=== PATIENT | male | born 1955 | race Caucasian/White ===

== ENCOUNTER 2022-10-15 13:09 | Observation (INO) | payer MEDICARE, OTHER, SELFPAY ==
[2022-10-15] VITALS (11 sets, daily range): BP systolic 164–219; BP diastolic 84–102; PULSE 61–76; RESP 12–18; TEMP 35.5–37; O2SAT 88–99; BMI 31.8; BMI 30.4
--- NOTE | 2022-10-15 13:46 | CT_ITS ---
We are attempting to reach an attending provider to discuss findings. An addendum with communication details will be sent when the communication is complete. HISTORY: Neuro deficit, acute, stroke suspected. TECHNIQUE: Multiple axial images were obtained of the head without intravenous contrast. A radiation dose optimization technique was used for this scan. 251 images. COMPARISON: None. FINDINGS: BRAIN PARENCHYMA: Multiple foci and zones of low attenuation in the bilateral cerebral white matter compatible with chronic small vessel ischemic gliosis. Small chronic appearing left basal ganglia infarct. No acute intra-axial hemorrhage identified. CSF SPACES: Generalized volume loss. No midline shift or other significant mass effect. No acute extra-axial hemorrhage seen. 1.3 cm enlarged pituitary with remodeling of the sella. OTHER: Intact calvarium. Mild sphenoid and maxillary sinus mucosal thickening. Unremarkable orbits. 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 Recommend MRI pituitary mass protocol. No acute intracranial hemorrhage identified. Small chronic appearing left basal ganglia lacunar infarct. Chronic involutional and white matter changes. Electronically Signed: Cari Chilel MD at 14:04 EDT ,
--- NOTE | 2022-10-15 13:46 | EDS_ITS ---
HPI <WILSON Isbell - Last Filed: 10/15/22 19:27> History of Present Illness Chief Complaint: Nausea/Vomiting Narrative Narrative: Patient presenting today due to sudden onset dizziness that started around 12- 12:30 this afternoon while he was at a baseball game with his . He reports that he went to put his phone to his side without turning his head or changing position and told his , I am dizzy. He became diaphoretic, nauseous, and has had several episodes of vomiting. He denies any past medical history of any chronic health conditions. He denies a history of stroke. He thinks he might of had vertigo in the past but also had a stomach bug at that time. He denies any chest pain, shortness of breath, fever, chills, abdominal pain. PFSH <WILSON Isbell - Last Filed: 10/15/22 19:27> PFSH Medical History Abdominal undescended testes Concussion Medical History no medical history Home Medications NK 10/15/22 [History Last Taken Unknown] Allergy/AdvReac Type Severity Reaction Status Date / Time No Known Allergies Allergy Verified 10/15/22 13:11 Family History (Updated 10/15/22 @ 16:[address] Shaila Marx DO) Other CAD (coronary artery disease) CVA (cerebral vascular accident) Diabetes Heart disease Hypertension Kidney disease Surgical History H/O hernia repair Surgical History no surgical history Social History (Updated 10/15/22 @ 16:[address] Shaila Marx DO) household members: spouse housing: house current occupational status: employed current occupation: Chiropractor Smoking Status: Never smoker alcohol intake: never substance use type: does not use ROS <WILSON Isbell - Last Filed: 10/15/22 19:27> ROS ED Constitutional Constitutional ED: Denies chills or fever(s) Cardiovascular Cardiovascular: Denies chest pain or palpitations Respiratory/Chest Respiratory/Chest: Denies cough or dyspnea Gastrointestinal Gastrointestinal: Denies abdominal pain, nausea or vomiting Musculoskeletal Musculoskeletal: Denies arthralgias or myalgias Integumentary Denies rash Neurologic Neurologic: Reports dizziness; Denies confusion, paresthesias or weakness EXAM <WILSON Isbell - Last Filed: 10/15/22 19:27> Physical Exam Const Vital Signs: 10/15/22 13:11 10/15/22 13:16 10/15/22 13:56 Temperature 96 F L Temperature Source Temporal Pulse Rate 63 Respiratory Rate 17 Blood Pressure 214/102 H Blood Pressure Mean 139 Pulse Ox 92 Oxygen Delivery Method Room Air Room Air 10/15/22 14:00 10/15/22 14:30 10/15/22 14:30 Temperature Temperature Source Pulse Rate 61 Respiratory Rate 17 Blood Pressure 219/97 H 210/94 H 210/94 H Blood Pressure Mean 137 128 128 Pulse Ox 88 Oxygen Delivery Method Room Air Room Air 10/15/22 15:00 Temperature Temperature Source Pulse Rate Respiratory Rate Blood Pressure 195/88 H Blood Pressure Mean 119 Pulse Ox 96 Oxygen Delivery Method Room Air Positive well nourished and well developed General Appearance ED: well developed HEENT Reports normocephalic and head/scalp atraumatic Mouth ED: Yes moist mucous membranes normal Neck full ROM and supple Chest Wall inspection of chest normal Resp normal respiratory effort and clear to auscultation bilaterally Cardio regular rate and regular rhythm GI soft to palpation, non-tender, non-distended and no masses Back/Spine normal ROM and normal to inspection Extremity normal to inspection and full ROM Neuro oriented x3, CN's II-XII intact bilaterally, moves all extremities, no focal motor deficits and no sensory deficits noted Sensorium / Orientation: awake and alert Speech: speech normal Motor Exam: strength 5/5 throughout Psych mental status grossly normal and thought process normal Skin no rashes or lesions noted and no wounds <Dr. Ramila Bajwa MD - Last Filed: 10/15/22 15:48> Physical Exam Const Vital Signs: 10/15/22 13:11 10/15/22 13:16 10/15/22 13:56 Temperature 96 F L Temperature Source Temporal Pulse Rate 63 Respiratory Rate 17 Blood Pressure 214/102 H Blood Pressure Mean 139 Pulse Ox 92 Oxygen Delivery Method Room Air Room Air 10/15/22 14:00 10/15/22 14:30 10/15/22 14:30 Temperature Temperature Source Pulse Rate 61 Respiratory Rate 17 Blood Pressure 219/97 H 210/94 H 210/94 H Blood Pressure Mean 137 128 128 Pulse Ox 88 Oxygen Delivery Method Room Air Room Air 10/15/22 15:00 Temperature Temperature Source Pulse Rate Respiratory Rate Blood Pressure 195/88 H Blood Pressure Mean 119 Pulse Ox 96 Oxygen Delivery Method Room Air [facility] <WILSON Isbell - Last Filed: 10/15/22 19:27> [facility] Narrative Medical decision making narrative: Patient presenting today for sudden onset dizziness that started around 12 or 12:30 PM this afternoon. he was at a baseball game when this started and went to set his phone down at his side without turning his head or changing position and suddenly felt dizzy. He describes it as the room is spinning. On initial examination, he is unable to open his eyes because he reports he is too dizzy and he is actively vomiting. He has a blood pressure of 214/102, given patient's symptoms stroke team was initiated and a stroke work-up will be obtained. NIH is 0. Patient will be given labetalol for his blood pressure and Zofran for nausea. Initial head CT showed a pituitary enlargement without any intracranial bleeding, head and neck CTAs performed and did not reveal any LVO. Patient required another dose of labetalol for elevated blood pressure. Labs and, CBC, BMP shows elevated BUN and creatinine with a GFR of 54, glucose 146. Chest x-ray negative for any acute findings, EKG sinus bradycardia, troponin WNL. On reexamination patient reports feeling slightly better, he is not as dizzy or nauseous. Attending did speak with teleneurologist who had lower concern for stroke at this time. However, he will be admitted to the hospital for further evaluation in stable condition and is comfortable with plan. Lab Data Attestation: I reviewed the patient's lab results. Labs: Laboratory Results - last 24 hr 10/15/22 10/15/22 10/15/22 13:48 13:56 13:56 WBC 9.0 RBC 4.96 Hgb 14.6 Hct 45.1 MCV 90.9 MCH 29.4 MCHC 32.4 RDW Std Deviation 45.0 H RDW Coeff of [place] 13.4 Plt Count 254 MPV 10.1 Immature Gran % (Auto) 0.600 Neut % (Auto) 69.2 Lymph % (Auto) 16.5 L [place] % (Auto) 8.2 Eos % (Auto) 4.8 Baso % (Auto) 0.7 Absolute Neuts (auto) 6.3 Absolute Lymphs (auto) 1.49 Nucleated RBC % 0 PT 12.7 INR 1.0 APTT 28.2 Sodium Potassium Chloride Carbon Dioxide Anion Gap BUN Creatinine Estim Creat Clear Calc Est GFR (MDRD) Af Amer Est GFR (MDRD) Non-Af BUN/Creatinine Ratio Glucose Hemoglobin A1c Calcium Troponin I High Sens TSH Cortisol POC Glucose 143 H 10/15/22 10/15/22 10/15/22 13:56 13:56 13:56 WBC RBC Hgb Hct MCV MCH MCHC RDW Std Deviation RDW Coeff of [place]was[place] Plt Count MPV Immature Gran % (Auto) Neut % (Auto) Lymph % (Auto) [place] % (Auto) Eos % (Auto) Baso % (Auto) Absolute Neuts (auto) Absolute Lymphs (auto) Nucleated RBC % PT INR APTT Sodium 140 Potassium 3.8 Chloride 106 Carbon Dioxide 29.0 Anion Gap 5 BUN 24 H Creatinine 1.38 H Estim Creat Clear Calc 48.88 Est GFR (MDRD) Af Amer 66 Est GFR (MDRD) Non-Af 54 L BUN/Creatinine Ratio 17.4 Glucose 146 H Hemoglobin A1c 5.6 Calcium 9.2 Troponin I High Sens 12 TSH 0.88 Cortisol POC Glucose 10/15/22 13:56 WBC RBC Hgb Hct MCV MCH MCHC RDW Std Deviation RDW Coeff of [place] Plt Count MPV Immature Gran % (Auto) Neut % (Auto) Lymph % (Auto) [place] % (Auto) Eos % (Auto) Baso % (Auto) Absolute Neuts (auto) Absolute Lymphs (auto) Nucleated RBC % PT INR APTT Sodium Potassium Chloride Carbon Dioxide Anion Gap BUN Creatinine Estim Creat Clear Calc Est GFR (MDRD) Af Amer Est GFR (MDRD) Non-Af BUN/Creatinine Ratio Glucose Hemoglobin A1c Calcium Troponin I High Sens TSH Cortisol 37.20 H POC Glucose Radiography Diagnostic Testing: Clinical Impression(s) from Imaging Studies Brain CT 10/15/22 13:46 IMPRESSION: Enlarged appearance of the pituitary gland with osseous remodeling, suspicious for pituitary macroadenoma or other mass. Recommend MRI pituitary mass protocol. No acute intracranial hemorrhage identified. Small chronic appearing left basal ganglia lacunar infarct. Chronic involutional and white matter changes. Electronically Signed: Cari Chilel MD at 14:04 EDT , ADDENDUM: 10/15/22 1411 IMPRESSION: Enlarged appearance of the pituitary gland with osseous remodeling, suspicious for pituitary macroadenoma or other mass. Recommend MRI pituitary mass protocol. No acute intracranial hemorrhage identified. Small chronic appearing left basal ganglia lacunar infarct. Chronic involutional and white matter changes. N.B. : The above Results were Read Back by Cari Chilel MD to Ramila Bajwa MD, and understanding confirmed on 10/15/2022 14:05:05 (ET). Electronically Signed: Cari Chilel MD at 14:04 EDT , Head/Neck CTA 10/15/22 14:24 IMPRESSION: Moderate stenoses in the proximal bilateral vertebral and internal carotid arteries in the neck. No evidence for large vessel occlusion the [place] region. Small pituitary mass; recommend MRI. Electronically Signed: Cari Chilel MD at 15:29 EDT , Chest X-Ray 10/15/22 14:25 IMPRESSION: Mild bibasilar atelectasis or scarring. Electronically Signed: Cari Chilel MD at 14:57 EDT , EKG Initial EKG: Comments: 59 bpm, sinus bradycardia, possible left atrial enlargement, left axis deviation, left ventricular hypertrophy was QRS widening, no ST elevation, reviewed and interpreted by attending ED physician. <Dr. Ramila Bajwa MD - Last Filed: 10/15/22 15:48> MDM Lab Data Labs: Laboratory Results - last 24 hr 10/15/22 10/15/22 10/15/22 13:48 13:56 13:56 WBC 9.0 RBC 4.96 Hgb 14.6 Hct 45.1 MCV 90.9 MCH 29.4 MCHC 32.4 RDW Std Deviation 45.0 H RDW Coeff of Kwasi 13.4 Plt Count 254 MPV 10.1 Immature Gran % (Auto) 0.600 Neut % (Auto) 69.2 Lymph % (Auto) 16.5 L [place] % (Auto) 8.2 Eos % (Auto) 4.8 Baso % (Auto) 0.7 Absolute Neuts (auto) 6.3 Absolute Lymphs (auto) 1.49 Nucleated RBC % 0 PT 12.7 INR 1.0 APTT 28.2 Sodium Potassium Chloride Carbon Dioxide Anion Gap BUN Creatinine Estim Creat Clear Calc Est GFR (MDRD) Af Amer Est GFR (MDRD) Non-Af BUN/Creatinine Ratio Glucose Hemoglobin A1c Calcium Troponin I High Sens TSH Cortisol POC Glucose 143 H 10/15/22 10/15/22 10/15/22 13:56 13:56 13:56 WBC RBC Hgb Hct MCV MCH MCHC RDW Std Deviation RDW Coeff of Kwasi Plt Count MPV Immature Gran % (Auto) Neut % (Auto) Lymph % (Auto) [place] % (Auto) Eos % (Auto) Baso % (Auto) Absolute Neuts (auto) Absolute Lymphs (auto) Nucleated RBC % PT INR APTT Sodium 140 Potassium 3.8 Chloride 106 Carbon Dioxide 29.0 Anion Gap 5 BUN 24 H Creatinine 1.38 H Estim Creat Clear Calc 48.88 Est GFR (MDRD) Af Amer 66 Est GFR (MDRD) Non-Af 54 L BUN/Creatinine Ratio 17.4 Glucose 146 H Hemoglobin A1c 5.6 Calcium 9.2 Troponin I High Sens 12 TSH 0.88 Cortisol POC Glucose 10/15/22 13:56 WBC RBC Hgb Hct MCV MCH MCHC RDW Std Deviation RDW Coeff of Kwasi Plt Count MPV Immature Gran % (Auto) Neut % (Auto) Lymph % (Auto) [place] % (Auto) Eos % (Auto) Baso % (Auto) Absolute Neuts (auto) Absolute Lymphs (auto) Nucleated RBC % PT INR APTT Sodium Potassium Chloride Carbon Dioxide Anion Gap BUN Creatinine Estim Creat Clear Calc Est GFR (MDRD) Af Amer Est GFR (MDRD) Non-Af BUN/Creatinine Ratio Glucose Hemoglobin A1c Calcium Troponin I High Sens TSH Cortisol 37.20 H POC Glucose Radiography Diagnostic Testing: Clinical Impression(s) from Imaging Studies Brain CT 10/15/22 13:46 IMPRESSION: Enlarged appearance of the pituitary gland with osseous remodeling, suspicious for pituitary macroadenoma or other mass. Recommend MRI pituitary mass protocol. No acute intracranial hemorrhage identified. Small chronic appearing left basal ganglia lacunar infarct. Chronic involutional and white matter changes. Electronically Signed: Cari Chilel MD at 14:04 EDT , ADDENDUM: 10/15/22 1411 IMPRESSION: Enlarged appearance of the pituitary gland with osseous remodeling, suspicious for pituitary macroadenoma or other mass. Recommend MRI pituitary mass protocol. No acute intracranial hemorrhage identified. Small chronic appearing left basal ganglia lacunar infarct. Chronic involutional and white matter changes. N.B. : The above Results were Read Back by Cari Chilel MD to Ramila Bajwa MD, and understanding confirmed on 10/15/2022 14:05:05 (ET). Electronically Signed: Cari Chilel MD at 14:04 EDT , Head/Neck CTA 10/15/22 14:24 IMPRESSION: Moderate stenoses in the proximal bilateral vertebral and internal carotid arteries in the neck. No evidence for large vessel occlusion the [place] region. Small pituitary mass; recommend MRI. Electronically Signed: Cari Chilel MD at 15:29 EDT , Chest X-Ray 10/15/22 14:25 IMPRESSION: Mild bibasilar atelectasis or scarring. Electronically Signed: Cari Chilel MD at 14:57 EDT , Treatment and Re-Evaluation :: Patient seen and evaluated with KENDALL. I personally interviewed and examined the patient. I was involved in all aspects of patient's orders, interpretation of results, and treatment. Patient was seen and evaluated with physicians behavioral assistant. Just after her initial evaluation was asked to see him rather emergently. Patient report he was at a baseball game this morning and felt his normal self. states he laid his phone down on the bench next to him and stated that he was very dizzy. He had no head injury. He did not bend over or turn his head suddenly before onset of symptoms. He has been diaphoretic with nausea and vomiting since that time along with vertiginous symptoms. Patient reportedly does not have a history of hypertension. She states that last year they were in [facility] and he had high blood pressure for a few days. He was given a very short duration of antihypertensives but is not on any blood pressure medications at baseline. He has had mild vertigo in the remote past. This occurred when he had a GI illness. Patient sitting upright in bed with his eyes closed. He is pale and slightly diaphoretic. Head and neck examination feels no external sign of trauma. Heart is regular rate and rhythm. Lung sounds are clear. Abdomen is soft and nontender. Neuro exam reveals normal strength and sensation in his extremities. Given his significant vertigo and nausea I was not initially able to do any visual field testing. Given the patient's degree of symptoms, significant hypertension, and sudden onset of symptoms I did elect to call a stroke alert as there was concern for posterior circulation stroke. Patient was taken for noncontrast head CT. This reveals evidence of a pituitary enlargement that would require further work-up. No evidence of hemorrhage. Patient was seen and evaluated by stroke neurologist from [facility]. She feels that his symptoms are likely more related to peripheral vertigo and hypertension. CBC is unremarkable. Chemistry studies reveal a BUN of 24 and a creatinine of 1.38. There are no prior values to compare to. Troponin is normal at 12. EKG is sinus with no acute ischemia. Portable chest x-ray per my interpretation reveals chronic changes. Patient was given Zofran as well as labetalol. Patient was sent for CTA of the head and neck. He did require a second dose of labetalol for persistent hypertension. CTA of the head and neck reveals no evidence of LVO. There is moderate vascular disease noted. Patient symptoms are improving at this time. Nursing staff states he is able to get up to bedside commode but is still very unsteady on his feet. Patient be discussed with hospitalist for admission and further management of his hypertension. We will discuss bolus IV medication versus starting him on an antihypertensive drip. Discharge Plan Dx/Rx/DC Orders Clinical Impression: Vertigo, Hypertensive emergency Disposition Disposition: Acute Care Hospital [facility] Discharge Date/Time: 10/15/22 16:52
--- NOTE | 2022-10-15 13:48 | NURSING ---
[id number] STROKE ALERT CALLED
--- NOTE | 2022-10-15 13:50 | NURSING ---
NO OLD EKGS
[2022-10-15] MEDS: Ondansetron 4 MG/2 ML Vial IV (14:00)
[2022-10-15] MEDS: Labetalol (Prefilled) 20 MG/4 ML IV ×3 (14:01→18:18)
[2022-10-15 14:03] LABS: Absolute Lymphocyte Count 1.49 X10^3/uL (0.83-4.51); Absolute Neutrophil Count 6.3 X10^3/uL (2.0-7.7); Basophil# 0.06 X10^3/uL; Basophil% 0.7 % (0-1); Eosinophil# 0.43 X10^3/uL; Eosinophils% 4.8 % (0-5); Hematocrit 45.1 % (40-54); Hemoglobin 14.6 g/dL (13.0-16.5); Lymphocyte # 1.49 X10^3/ul (0.83-4.51); Lymphocyte % 16.5 % (19-41); Mean Corp Hgb Conc 32.4 g/dL (32-36); Mean Corpuscular Hgb 29.4 pg (27.0-32.0); Mean Corpuscular Volume 90.9 fL (80-94); Mean Platelet Vol. 10.1 fl (6.2-12.0); Monocyte# 0.74 X10^3/uL; Monocyte% 8.2 % (0-10); NRBC Flagged by Analyzer 0 % (0-5); Neutrophil # 6.25 X10^3/uL (2.7-7.7); Neutrophil % 69.2 % (47-70); Platelet Count 254 K/mm3 (150-450); RBC Distribution Width CV 13.4 % (11.6-14.6); Red Blood Count 4.96 M/mm3 (4.6-6.2)
[2022-10-15 14:12] LABS: Prothrombin Time (Protime)PT. 12.7 SECONDS (11.7-14.9)
[2022-10-15 14:13] LABS: Partial Thromboplast Time 28.2 Seconds (24.1-36.2)
[2022-10-15 14:18] LABS: Anion Gap 5 (5-15); BUN 24 mg/dL (7-18); BUN/Creat Ratio 17.4 RATIO (10-20); Calcium,Total 9.2 mg/dL (8.5-10.1); Chloride 106 mmol/L (98-107); Creatinine, Serum 1.38 mg/dL (0.70-1.30); EST Glomerular Filtration Rate 54 mL/min (>60); Est Glom Filt Rate - Afr Amer 66 mL/min (>60); Estimated Creatinine Clearance 48.88 ml/min; Glucose 146 mg/dL (74-106); Potassium 3.8 mmol/L (3.5-5.1); Sodium Level 140 mmol/L (136-145); Troponin-I HS 12 pg/mL (3.0-78.0)
--- NOTE | 2022-10-15 14:24 | CT_ITS ---
HISTORY: vertigo. TECHNIQUE: [place]/head and carotid CT angiogram protocol was performed after the intravenous administration of 100 mL Isovue 370. NASCET criteria using the distal ICAs for comparison were used for evaluation of stenoses. 3D reconstructions were reviewed. A radiation dose optimization technique was used for this scan. 2283 images. COMPARISON: CT head same day FINDINGS: AORTIC ARCH AND BRANCHES: Normal anatomy, patent. RIGHT CCA: Calcified and noncalcified plaque at the bifurcation with 30% stenosis. No occlusion, significant stenosis or dissection. RIGHT ICA: Calcified and noncalcified plaque extending into the origin with 50% stenosis. No occlusion, significant stenosis or dissection. LEFT CCA: Mild calcified plaque at the bifurcation with less than 30% stenosis extending into the origins of the internal and external carotid arteries. No occlusion, significant stenosis or dissection. LEFT ICA: Noncalcified plaque proximally with 50% stenosis. Noncalcified plaque distally with 30% stenosis. No occlusion. VERTEBRAL ARTERIES: Calcified plaque at the origin of the left vertebral artery with approximately 50% stenosis. Tortuous proximal right vertebral artery with approximately 50% stenosis. Otherwise patent. ICAs: Mild calcified plaque at both carotid siphons. No significant stenosis or occlusion. ACAs: No significant stenosis at the visualized segments. MCAs: No significant stenosis at the visualized segments. vegetable thinner: No significant stenosis at the visualized segments. BASILAR ARTERY: No significant stenosis. VERTEBRAL ARTERIES: No significant stenosis at the intradural/visualized segments. No evidence of intracranial aneurysm or vascular malformation. OTHER: Sphenoid sinusitis. Maxillary sinus mucous retention cysts. Pituitary mass. CT/CTA Head AND Neck W/ Contrast IMPRESSION: Moderate stenoses in the proximal bilateral vertebral and internal carotid arteries in the neck. No evidence for large vessel occlusion the [place] region. Small pituitary mass; recommend MRI. Electronically Signed: Cari Chilel MD at 15:29 EDT ,
--- NOTE | 2022-10-15 14:25 | RAD_ITS ---
HISTORY: Neuro deficit, acute, stroke suspected. TECHNIQUE: XR Chest 1 View. COMPARISON: None. FINDINGS: CARDIOMEDIASTINAL BORDERS: Cardiac silhouette upper limits of normal in size. Calcification of the aortic knob. LUNGS: Mild linear bibasilar opacities. PLEURA: No pleural effusion or pneumothorax seen. OSSEOUS STRUCTURES: Degenerative change. RAD/Chest 1 View IMPRESSION: Mild bibasilar atelectasis or scarring. Electronically Signed: Cari Chilel MD at 14:57 EDT ,
[2022-10-15 14:26] LABS: Bedside Glucose 143 mg/dL (74-106)
[2022-10-15] MEDS: Aspirin 325 MG Tablet PO (14:29)
--- NOTE | 2022-10-15 16:12 | NURSING ---
DR CHEUNG FOR DR BELLO
--- NOTE | 2022-10-15 16:21 | ECHOD_ITS ---
Reason For Study: TIA/CVA Procedure This was a 2D Doppler, Color Flow transthoracic echocardiogram. Exam performed portable in patient room. Left Ventricle Normal LV size. Moderate concentric left ventricular hypertrophy. The left ventricular ejection fraction is 60 %. Diastolic function is indeterminate. Right Ventricle Normal right ventricle. Atria The left atrium is mildly enlarged. Normal right atrium. Bubble contrast study is negative for PFO/ASD. Mitral Valve The mitral valve is structurally normal. No prolapse or stenosis seen. Tricuspid Valve Normal tricuspid valve. Aortic Valve Trisinus/trileaflet aortic valve. Mild aortic stenosis. Mild-Moderate (1-2+) aortic valve insufficiency. Pulmonic Valve The pulmonic valve is not well visualized. Great Vessels Mildly dilated aortic root. Pericardium/Pleural No pericardial effusion. Medication Performed a rapid injection of agitated mix of 9 cc saline and 1cc air to assess for atrial septal defect. MMode/2D Measurements & Calculations LVIDd: 5.0 cm IVSd: 1.4 cm Ao root diam: 3.8 cm LVIDs: 3.0 cm LVPWd: 1.4 cm RVDd: 3.7 cm FS: 39.1 % LAV(MOD-bp): 76.1 ml LVAd ap4: 40.8 cm2 LVAd ap2: 35.4 cm2 LAV(MOD-bp) Indexed: 37.2 ml/m2 LVLd ap4: 9.4 cm LVLd ap2: 9.0 cm LAV(MOD-sp2): 86.1 ml EDV(MOD-sp4): 152.6 ml EDV(MOD-sp2): 116.7 ml LAV(MOD-sp4): 67.2 ml EDV(sp4-el): 150.4 ml EDV(sp2-el): 118.4 ml LVAs ap4: 21.1 cm2 LVAs ap2: 19.3 cm2 LVLs ap4: 7.4 cm LVLs ap2: 7.4 cm ESV(MOD-sp4): 54.6 ml ESV(MOD-sp2): 45.2 ml ESV(sp4-el): 50.8 ml ESV(sp2-el): 42.4 ml EF(MOD-sp4): 64.3 % EF(MOD-sp2): 61.2 % EF(sp4-el): 66.2 % SV(MOD-sp4): 98.1 ml SV(MOD-sp2): 71.5 ml SV(sp4-el): 99.6 ml LA A4 area: 21.0 cm2 LA dimension(2D): 4.3 cm RA A4 area: 11.7 cm2 Time Measurements MV dec time: 0.28 sec Doppler Measurements & Calculations MV E max brad: 62.3 cm/sec Lat Peak E' Brad: 8.6 cm/sec Med Peak E' Brad: 5.7 cm/sec MV A max brad: 78.6 cm/sec E/E' lat: 7.2 E/E' med: 10.9 MV E/A: 0.79 Ao V2 max: 244.8 cm/sec AI max brad: 380.3 cm/sec LV V1 max: 111.6 cm/sec Ao max P.0 mmHg AI max P.0 mmHg LV V1 max P.0 mmHg Ao V2 mean: 167.4 cm/sec LV V1 mean P.1 mmHg Ao mean P.1 mmHg AI dec slope: 186.1 cm/sec2 LV V1 mean: 82.5 cm/sec Ao V2 VTI: 53.3 cm AI P1/2t: 598.4 msec LV V1 VTI: 25.9 cm AV (velocity ratio): 0.49 ECHO/Echo Complete Interpretation Summary Moderate concentric left ventricular hypertrophy. The left ventricular ejection fraction is 60 %. Diastolic function is indeterminate. The left atrium is mildly enlarged. Mild aortic stenosis. Mild-Moderate (1-2+) aortic valve insufficiency. Mildly dilated aortic root. Bubble contrast study is negative for PFO/ASD. Ordering Physician: Shaila Marx Referring Physician: MARLENE PCP Performed By: Cassie Gonzalez, CAIN, RVT
--- NOTE | 2022-10-15 16:21 | NURSING ---
PCU OBS JONATAN VERTIGO, HYPERTENSIVE URGENCY
--- NOTE | 2022-10-15 16:23 | PCM.HP.STD ---
HPI - General General Date of Admission: 10/15/22 Date of Service: 10/15/22 Chief Complaint: Vertigo HPI Narrative ELLIOTT GARCIA, is a 67 M who presented to the emergency department at [facility] on 10/15/2022 with a chief complaint of vertigo. The patient is here from out of town. He lives in [place] [facility] [place] and is here to see his grandchildren play baseball. He was sitting at one of the baseball games when he acutely developed vertigo. It was not worsened with any movement of his head and was acute in onset. It was associated with nausea and vomiting. Symptoms did improve with closing of his eyes. He denied any other associated tingling numbness or weakness. He had no abnormal speech. At the time of my evaluation he was back to his baseline and experiencing no vertigo. His blood pressure was noted to be remarkably high on presentation with a systolic greater than 200. He does not have any diagnosed hypertension at baseline. He states that he had a couple episodes of elevated blood pressure previously but when he checks his blood pressure at home he runs from the 140s to 150s systolic. He has never been placed on antihypertensives for extended period of time previously. Vital signs on presentation showed temperature of 96, heart rate 63, blood pressure 114/102 with repeat after medication at 181/84, respiratory rate 17 and pulse ox has been anywhere from 88 to 96% on room air. CBC is unremarkable. Coags are normal. Chemistry panel shows normal electrolytes and a mildly elevated BUN and creatinine at 24 and 1.38 respectively with baseline being unknown. His blood sugar was 146. His troponin was 12. Chest x-ray showed mild bibasilar atelectasis or scarring. CT of the brain showed enlarged appearance of the pituitary gland with osseous remodeling suspicious for pituitary macroadenoma, small chronic appearing changes in the left basal ganglia consistent with a lacunar infarct and chronic involutional and white matter changes. CTA of the head and neck showed moderate stenosis at 50% in the bilateral vertebral and bilateral internal carotid arteries with no large vessel occlusion in the [place] and a small pituitary mass. He was given aspirin and treated with as needed labetalol in the emergency department. Stroke neurology was consulted and recommended admission if his vertiginous symptoms were persistent and imaging showed any abnormalities. [facility] Medical History (Updated 10/15/22 @ 16:52 [address] DrNico Marx DO) Abdominal undescended testes Concussion Medical History no medical history Home Medications NK 10/15/22 [History Last Taken Unknown] Allergy/AdvReac Type Severity Reaction Status Date / Time No Known Allergies Allergy Verified 10/15/22 13:11 Family History (Updated 10/15/22 @ 16:[address] Shaila Marx DO) Other CAD (coronary artery disease) CVA (cerebral vascular accident) Diabetes Heart disease Hypertension Kidney disease Surgical History (Updated 10/15/22 @ 16:[address] Shaila Marx DO) H/O hernia repair Surgical History no surgical history Social History (Updated 10/15/22 @ 16:[address] Shaila Marx DO) household members: spouse housing: house current occupational status: employed current occupation: Chiropractor Smoking Status: Never smoker alcohol intake: never substance use type: does not use ROS Constitutional Constitutional: Denies anorexia, change in weight, chills, fatigue, fever(s), malaise, night sweats, weakness or other Eyes Eyes: Denies blurry vision, change in eye color, change in vision, discharge from eye(s), double vision, erythema, eye pain, loss of vision or other ENT HEENT: Denies abnormal hearing, dysphagia, ear pain, epistaxis, headache(s), hearing loss, nasal congestion, nasal discharge, post nasal drip, sinus pressure, sore throat or other Cardiovascular Cardiovascular: Denies chest pain, claudication, dyspnea on exertion, edema, lightheadedness, orthopnea, palpitations, paroxysmal nocturnal dyspnea, rapid heart rate, syncope or other Respiratory/Chest Respiratory/Chest: Denies cough, dyspnea, excessive phlegm production, hemoptysis, productive cough, shortness of breath at rest, shortness of breath with exertion, wheezing or other Gastrointestinal Gastrointestinal: Reports nausea and vomiting; Denies abdominal pain, coffee ground emesis, constipation, diarrhea, dyspepsia, hematemesis, hematochezia, loose stools, melena or other Genitourinary Genitourinary: Denies burning urination, difficulty urinating, dysuria, hematuria, nocturia, urinary frequency, urinary hesitancy, urinary incontinence, urinary urgency or other Musculoskeletal Musculoskeletal: Reports back pain; Denies arthralgias, joint pain, joint stiffness, joint swelling, myalgias, neck pain or other Neurologic Neurologic: Reports dizziness; Denies abnormal gait, abnormal speech, confusion, disequilibrium, focal weakness, headache(s), numbness, paresthesias, seizure-like activity, seizures, syncope, tingling, tremor(s) or other Psychiatric Psychiatric: Denies anxiety, depression, homicidal ideation, suicidal ideation or other Endocrine Endocrinology: Denies change in body appearance, cold intolerance, excessive sweating, heat intolerance, polydipsia, polyuria or other Hematologic/Lymphatic Hematologic/Lymphatic: Denies anemia, easy bleeding, easy bruising, lymphadenopathy or other Allergic/Immunologic Allergic/Immunologic: Denies rhinitis, hives, eczemia, asthma or other Vital Signs Vital Signs Vital Signs: 10/15/22 13:11 10/15/22 13:16 10/15/22 13:56 Temperature 96 F L Temperature Source Temporal Pulse Rate 63 Respiratory Rate 17 Blood Pressure 214/102 H Blood Pressure Mean 139 Pulse Ox 92 Oxygen Delivery Method Room Air Room Air 10/15/22 14:00 10/15/22 14:30 10/15/22 14:30 Temperature Temperature Source Pulse Rate 61 Respiratory Rate 17 Blood Pressure 219/97 H 210/94 H 210/94 H Blood Pressure Mean 137 128 128 Pulse Ox 88 Oxygen Delivery Method Room Air Room Air 10/15/22 15:00 Temperature Temperature Source Pulse Rate Respiratory Rate Blood Pressure 195/88 H Blood Pressure Mean 119 Pulse Ox 96 Oxygen Delivery Method Room Air Weight Weight: 95 kg Body Mass Index (BMI) 31.8 Physical Exam Const alert, oriented x3, no apparent distress, healthy appearing and well nourished Constitutional Narrative: Overweight, upper middle-aged, white male, lying in bed, at bedside, patient appears comfortable and nontoxic General Appearance: cooperative HEENT normocephalic, head/scalp atraumatic, hearing grossly normal bilaterally and moist oral mucous membranes HEENT Narrative: Mallampati 1, no thrush Eyes PERRL, EOMs intact bilaterally and conjunctivae normal Eyes Narrative: No scleral icterus Neck no lymphadenopathy, supple, no JVD and no carotid bruits Neck Narrative: Cardiac murmur that radiates to bilateral carotid arteries with no bruit, trachea midline, no thyroid in Resp normal respiratory effort, no retractions, no use of accessory muscles and clear to auscultation bilaterally Auscultation: Negative for rales, rhonchi or wheezes Cardio regular rate, regular rhythm, S1 normal heart sound, S2 normal heart sound, no rub and no clicks; Negative for no murmurs or no gallops Cardio Narrative: S4 gallop, 3 out of 6 systolic murmur loudest at left lower sternal border GI normal to inspection, nondistended, normoactive bowel sounds, soft to palpation and non-tender Extremity no clubbing, cyanosis or edema Extremity Narrative: Pedal pulses are 2+ Skin no rashes or lesions noted, no wounds, skin turgor normal, no jaundice, no petechiae and no mottling Neuro oriented x3, CN's II-XII intact bilaterally, moves all extremities and no focal motor deficits Neuro Narrative: No clonus present Sensorium / Orientation: awake, alert, oriented to person, oriented to place and oriented to time Speech: speech normal Motor Exam: strength 5/5 throughout Psych affect normal Psych Narrative: Very pleasant, appropriately interactive Results Lab / Micro Data Attestation: I reviewed the patient's lab results. Result Diagrams: 10/15/22 13:56 10/15/22 13:56 Labs: Laboratory Results - last 24 hr 10/15/22 13:48: POC Glucose 143 H 10/15/22 13:56: WBC 9.0, RBC 4.96, Hgb 14.6, Hct 45.1, MCV 90.9, MCH 29.4, MCHC 32.4, RDW Std Deviation 45.0 H, RDW Coeff of Kwasi 13.4, Plt Count 254, MPV 10.1, Immature Gran % (Auto) 0.600, Neut % (Auto) 69.2, Lymph % (Auto) 16.5 L, Angelina % (Auto) 8.2, Eos % (Auto) 4.8, Baso % (Auto) 0.7, Absolute Neuts (auto) 6.3, Absolute Lymphs (auto) 1.49, Nucleated RBC % 0 10/15/22 13:56: PT 12.7, INR 1.0, APTT 28.2 10/15/22 13:56: Sodium 140, Potassium 3.8, Chloride 106, Carbon Dioxide 29.0, Anion Gap 5, BUN 24 H, Creatinine 1.38 H, Estim Creat Clear Calc 48.88, Est GFR (MDRD) Af Amer 66, Est GFR (MDRD) Non-Af 54 L, BUN/Creatinine Ratio 17.4, Glucose 146 H, Calcium 9.2, Troponin I High Sens [address] 10/15/22 13:46 IMPRESSION: Enlarged appearance of the pituitary gland with osseous remodeling, suspicious for pituitary macroadenoma or other mass. Recommend MRI pituitary mass protocol. No acute intracranial hemorrhage identified. Small chronic appearing left basal ganglia lacunar infarct. Chronic involutional and white matter changes. Electronically Signed: Cari Chilel MD at 14:04 EDT , ADDENDUM: 10/15/22 1411 IMPRESSION: Enlarged appearance of the pituitary gland with osseous remodeling, suspicious for pituitary macroadenoma or other mass. Recommend MRI pituitary mass protocol. No acute intracranial hemorrhage identified. Small chronic appearing left basal ganglia lacunar infarct. Chronic involutional and white matter changes. N.B. : The above Results were Read Back by Cari Chilel MD to Ramila Bajwa MD, and understanding confirmed on 10/15/2022 14:05:05 (ET). Electronically Signed: Cari Chilel MD at 14:04 EDT , Head/Neck CTA 10/15/22 14:24 IMPRESSION: Moderate stenoses in the proximal bilateral vertebral and internal carotid arteries in the neck. No evidence for large vessel occlusion the [place] region. Small pituitary mass; recommend MRI. Electronically Signed: Cari Chilel MD at 15:29 EDT , Chest X-Ray 10/15/22 14:25 IMPRESSION: Mild bibasilar atelectasis or scarring. Electronically Signed: Cari Chilel MD at 14:57 EDT , Assessment & Plan Assessment/Plan (1) Vertigo: (2) Hypertensive emergency: (3) Elevated serum creatinine: (4) Hyperglycemia: (5) Pituitary mass: PLAN: Plan Vertigo -Acute onset that was not positional -Need to rule out stroke posterior -CT of head showed no bleeding but did show an enlarged appearance of the pituitary gland with osseous remodeling that suspicious for pituitary macroadenoma or other mass an MRI with pituitary mass protocol is recommended, there is a small chronic appearing left basal ganglia lacunar infarct -CTA of the head and neck showed moderate stenosis at the proximal bilateral vertebral and internal carotid arteries but no evidence of large vessel occlusion and this also suggest pituitary mass, stenosis was noted at approximately 50% -Stroke order set -Check MRI of the of the brain to rule out stroke and for pituitary mass protocol-discussed with MRI -Check hemoglobin A1c -Check lipids -PT/OT consultation -Check echocardiogram Pituitary mass -Pituitary mass noted on CT of brain and CTA of head and neck -MRI with pituitary protocol pending -If pituitary mass is present patient may need transferred -We will have neurology evaluate the patient -Check TSH Hypertensive emergency -Blood pressure was markedly elevated and with neurological changes I believe we can justify emergency at this time -Patient is given as needed labetalol in the emergency department -Continue as needed labetalol and as needed hydralazine for systolic pressure greater than 180 -Goal blood pressure for tonight is to keep systolic around 180 -We will address further blood pressure tomorrow and possibly start oral medications depending on overnight values -Check TSH and cortisol levels -EKG does show some left axis deviation and LVH I do suspect he has hypertension at baseline that is undiagnosed Hyperglycemia -Check hemoglobin A1c -No history of diabetes Obesity -BMI 31.8 -Complicates treatment, prognosis, outcomes -Recommended weight loss DVT prophylaxis -Lovenox subcu daily CODE STATUS -Full code Charges/Coding Visit Charges Inpatient E&M: 56292 Init Hosp L3
--- NOTE | 2022-10-15 16:29 | CM.ED ---
Social Work SW introduced self and role to family. Pt in imagine for stroke alert. SW provided emotional support. Shelbi Barriga SALES OPERATIONS MANAGER, [employer]
[2022-10-15 17:36] LABS: Thyroid Stim Hormone (TSH) 0.88 uIU/mL (0.358-3.74)
[2022-10-15 18:06] LABS: Hemoglobin A1c 5.6 % (3.8-5.6)
[2022-10-15] MEDS: 0.9% Saline Lock 10 ML Syringe IV (18:14)
--- NOTE | 2022-10-15 18:15 | MRI_ITS ---
We are attempting to reach an attending provider to discuss findings. An addendum with communication details will be sent when the communication is complete. STUDY: MRI BRAIN WITH AND WITHOUT CONTRAST REASON FOR EXAM: Male, 67 years old. stroke TECHNIQUE: Standardized multiplanar fat and water weighted pulse sequences were obtained. 18ML IV CLARISCAN was administered for the contrast portion of the examination. COMPARISON: CT of the brain October 15, 2022 FINDINGS: Normal size of the ventricles and extra-axial spaces for the patient''s age. Moderate periventricular white matter ischemic changes. There is a small focus of restricted diffusion in the left parietal lobe consistent with acute ischemic changes . Normal bilateral basal ganglia. Normal thalami. There is no extra-axial fluid accumulation. Normal flow voids within the major intracranial circulation suggesting patency by spin echo criteria. Normal venous enhancement. There is no enhancing intra-axial or extra-axial abnormality. The pituitary is diffusely enlarged and demonstrates slightly heterogeneous enhancement without discrete nodule. Normal, infundibular stalk, optic chiasm and hypothalamus. Normal tectal plate and pineal gland. Normal midbrain, nimesh and medulla. Normal cerebellum. Normal basal cisterns. Normal bilateral temporal bones. Normal bilateral internal auditory canals. No demonstrated orbital abnormality, within the constraints of a routine brain study. There is mucosal thickening in the bilateral maxillary ethmoid and sphenoid sinuses. Normal calvarium and skull base. Normal visualized soft tissue structures. Normal visualized upper cervical spine. MRI/Brain W/WO Contrast IMPRESSION: Moderate periventricular white matter ischemic changes with small focal acute deep white matter infarct in left parietal lobe. Incidental finding of nonspecific enlargement of the pituitary without focal nodule Bilateral maxillary ethmoid and sphenoid sinus disease likely chronic Electronically Signed: Christian Nicole MD at 20:01 EDT ,
[2022-10-15] MEDS: 0.9% Normal Saline 1,000 ML 100 ML IV (18:18)
--- NOTE | 2022-10-15 21:10 | PN_ITS ---
Progress Note Received a call from [facility]. MRI with small focal acute deep white matter infarct in left parietal lobe and incidental finding of nonspecific enlargement of pituitary without focal nodule. Head/neck CTA reviewed. It showed no evidence of large vessel occlusion or [place] region. Small pituitary mass. Teleneurologist called and recommended to add Plavix 600 mg loading dose and then 75 mg daily to continue alongside aspirin 81mg for 3 weeks and then aspirin monotherapy thereafter. And for pituitary mass to be worked out likely outpatient with hormone studies. Patient is already on high intensity statin. Orders placed accordingly.
[2022-10-15] MEDS: Clopidogrel Bisulfate 300 MG Tablet 600 MG PO (22:18)
[2022-10-15] MEDS: Atorvastatin Calcium 80 MG Tablet PO (22:18)
[2022-10-16] VITALS (11 sets, daily range): BP systolic 146–218; BP diastolic 74–103; PULSE 65–79; RESP 15–16; TEMP 36.6–36.9; O2SAT 93–97; BMI 30.4
[2022-10-16] MEDS: Ondansetron 4 MG/2 ML Vial IV ×2 (03:00→10:46)
[2022-10-16] MEDS: Meclizine 12.5 MG Tablet PO ×3 (03:08→15:01)
[2022-10-16 07:16] LABS: Absolute Lymphocyte Count 0.99 X10^3/uL (0.83-4.51); Absolute Neutrophil Count 6.4 X10^3/uL (2.0-7.7); Basophil# 0.05 X10^3/uL; Basophil% 0.6 % (0-1); Eosinophil# 0.08 X10^3/uL; Hematocrit 41.1 % (40-54); Hemoglobin 13.6 g/dL (13.0-16.5); Lymphocyte # 0.99 X10^3/ul (0.83-4.51); Lymphocyte % 11.9 % (19-41); Mean Corp Hgb Conc 33.1 g/dL (32-36); Mean Corpuscular Hgb 29.8 pg (27.0-32.0); Mean Corpuscular Volume 90.1 fL (80-94); Mean Platelet Vol. 10.3 fl (6.2-12.0); Monocyte# 0.77 X10^3/uL; Monocyte% 9.3 % (0-10); NRBC Flagged by Analyzer 0 % (0-5); Neutrophil # 6.39 X10^3/uL (2.7-7.7); Neutrophil % 76.8 % (47-70); Platelet Count 232 K/mm3 (150-450); RBC Distribution Width CV 13.5 % (11.6-14.6); RBC Distribution Width SD 45.1 fl (35.1-43.9); Red Blood Count 4.56 M/mm3 (4.6-6.2); White Blood Count 8.3 K/mm3 (4.4-11.0)
[2022-10-16 07:56] LABS: ALB/GLOB Ratio 0.9 RATIO (0.9-2.4); AST(SGOT) 20 U/L (15-37); Alanine Aminotransfer ALT/SGPT 33 U/L (16-61); Alkaline Phosphatase 68 U/L (45-117); Anion Gap 7 (5-15); BUN 21 mg/dL (7-18); BUN/Creat Ratio 18.1 RATIO (10-20); Calcium,Total 8.7 mg/dL (8.5-10.1); Chloride 109 mmol/L (98-107); Cholesterol 197 mg/dL (200); Creatinine, Serum 1.16 mg/dL (0.70-1.30); EST Glomerular Filtration Rate 66 mL/min (>60); Est Glom Filt Rate - Afr Amer 80 mL/min (>60); Estimated Creatinine Clearance 58.15 ml/min; Globulin 3.2 g/dL (2.2-4.2); Glucose 109 mg/dL (74-106); High Density Lipoprotein 35 mg/dL; Magnesium 2.2 mg/dL (1.6-2.6); Phosphorus 3.2 mg/dL (2.5-4.9); Potassium 3.8 mmol/L (3.5-5.1); Protein, Total 6.2 g/dL (6.4-8.2); Sodium Level 142 mmol/L (136-145); Triglycerides 99 mg/dL; Very Low Density Lipoprotein 20 mg/dL (5-40)
[2022-10-16] MEDS: Labetalol (Prefilled) 20 MG/4 ML IV (07:58)
[2022-10-16] MEDS: 0.9% Saline Lock 10 ML Syringe IV ×2 (07:59→10:47)
--- NOTE | 2022-10-16 08:02 | CPS ---
SMI AND PEP HELD. PT FEELS DIZZY AND NOT UP TO DOING THEM.
[2022-10-16] MEDS: hydrALAZINE 20 MG/ML Vial 5 MG IV (08:33)
[2022-10-16] MEDS: Lisinopril 10 MG Tablet PO (09:04)
[2022-10-16] MEDS: Clopidogrel Bisulfate 75 MG Tablet PO (09:04)
[2022-10-16] MEDS: Aspirin 81 MG TAB.CHEW PO (09:05)
[2022-10-16] MEDS: Enoxaparin 40 MG/0.4 ML Syringe SC (09:05)
--- NOTE | 2022-10-16 11:05 | CASEMGMT ---
MAICOL LAGUNAS in to discuss [employer] form with patient. MAICOL LAGUNAS explained [employer] form to pt per his request, patient voiced understanding. Pt signed form and filed in chart. Pt provided with a copy of signed [facility] form. [place] and [place]. Pt still works. Pt denies any homegoing needs at this time. Therapy was help d/t dizziness. Pt has PCP and will follow up once home. Patient had no further questions or concerns at this time.
--- NOTE | 2022-10-16 11:39 | CPS ---
PEP AND SMI HELD, PT CONTINUES TO BE DIZZY AND NAUSEATED
--- NOTE | 2022-10-16 11:43 | PCM.PN.HOSP ---
Reason for Visit Reason for Visit: Dizziness/Nausea/vomiting Subjective Subjective Patient with recurrent dizziness this morning. He has horizontal nystagmus on exam and its worse with turning his head to the right. Yesterday he was not able to delineate symptoms that were worse with moving however today he is. Has had some intermittent nausea and vomiting associated with his dizziness as well. We did discuss the findings of a left parietal stroke on his MRI however his stroke does not correlate with symptoms of dizziness. I think this is in an incidental finding and possibly his blood pressure went up and he was experiencing dizziness and caused a small vessel ischemic stroke in the deep white matter of the left parietal hemisphere. He does appear to have chronic hypertension with LVH noted on his EKG and lipids are elevated with a total cholesterol 197 however his LDL is 142. We did discuss the initiation of Plavix and aspirin as well as atorvastatin and blood pressure medication to control his blood pressure upon discharge. We will still allow for permissive hypertension today and start controlling his blood pressure more aggressively tomorrow. Goal blood pressure be 180 systolic today. Tomorrow we can start blood pressure medication to work towards his goal of 130/80 ultimately. He will need follow-up with neurology as an outpatient both for stroke and for his pituitary hypertrophy. Son and are at the bedside and voiced understanding and all questions were answered. Objective Data Objective Data Vital Signs: Vital Signs Temp Pulse Resp BP Pulse Ox O2 Del Method 97.9 F 66 16 179/87 H 95 Room Air 10/16/22 08:00 10/16/22 08:33 10/16/22 08:00 10/16/22 09:20 10/16/22 08:02 10/16/22 08:02 Oxygen Delivery Method Room Air Weight: 90.8 kg Body Mass Index (BMI) 30.4 Intake & Output: Intake and Output for Last 24 Hours 10/14/22 10/15/22 10/16/22 23:59 23:59 23:59 Intake Total 450 / 450 1120 / 1120 Output Total 0 / 0 Balance 450 / 450 1120 / 1120 Lab / Micro Data Result Diagrams: 10/16/22 06:39 10/16/22 06:39 Labs: Laboratory Results - last 24 hr 10/15/22 13:48: POC Glucose 143 H 10/15/22 13:56: WBC 9.0, RBC 4.96, Hgb 14.6, Hct 45.1, MCV 90.9, MCH 29.4, MCHC 32.4, RDW Std Deviation 45.0 H, RDW Coeff of Kwasi 13.4, Plt Count 254, MPV 10.1, Immature Gran % (Auto) 0.600, Neut % (Auto) 69.2, Lymph % (Auto) 16.5 L, [place] % (Auto) 8.2, Eos % (Auto) 4.8, Baso % (Auto) 0.7, Absolute Neuts (auto) 6.3, Absolute Lymphs (auto) 1.49, Nucleated RBC % 0 10/15/22 13:56: PT 12.7, INR 1.0, APTT 28.2 10/15/22 13:56: Sodium 140, Potassium 3.8, Chloride 106, Carbon Dioxide 29.0, Anion Gap 5, BUN 24 H, Creatinine 1.38 H, Estim Creat Clear Calc 48.88, Est GFR (MDRD) Af Amer 66, Est GFR (MDRD) Non-Af 54 L, BUN/Creatinine Ratio 17.4, Glucose 146 H, Calcium 9.2, Troponin I High Sens 12 10/15/22 13:56: TSH 0.88 10/15/22 13:56: Hemoglobin A1c 5.6 10/15/22 13:56: Cortisol 37.20 H 10/16/22 06:39: WBC 8.3, RBC 4.56 L, Hgb 13.6, Hct 41.1, MCV 90.1, MCH 29.8, MCHC 33.1, RDW Std Deviation 45.1 H, RDW Coeff of Kwasi 13.5, Plt Count 232, MPV 10.3, Immature Gran % (Auto) 0.400, Neut % (Auto) 76.8 H, Lymph % (Auto) 11.9 L, [place] % (Auto) 9.3, Eos % (Auto) 1.0, Baso % (Auto) 0.6, Absolute Neuts (auto) 6.4, Absolute Lymphs (auto) 0.99, Nucleated RBC % 0 10/16/22 06:39: Sodium 142, Potassium 3.8, Chloride 109 H, Carbon Dioxide 26.0, Anion Gap 7, BUN 21 H, Creatinine 1.16, Estim Creat Clear Calc 58.15, Est GFR (MDRD) Af Amer 80, Est GFR (MDRD) Non-Af 66, BUN/Creatinine Ratio 18.1, Glucose 109 H, Calcium 8.7, Phosphorus 3.2, Magnesium 2.2, Total Bilirubin 1.30 H, AST 20, ALT 33, Alkaline Phosphatase 68, Total Protein 6.2 L, Albumin 3.0 L, Globulin 3.2, Albumin/Globulin Ratio 0.9, Triglycerides 99, Cholesterol 197, LDL Cholesterol 142 H, VLDL Cholesterol 20, HDL Cholesterol 35 L Radiography Diagnostic Testing: Radiology Impression Brain CT 10/15/22 13:46 IMPRESSION: Enlarged appearance of the pituitary gland with osseous remodeling, suspicious for pituitary macroadenoma or other mass. Recommend MRI pituitary mass protocol. No acute intracranial hemorrhage identified. Small chronic appearing left basal ganglia lacunar infarct. Chronic involutional and white matter changes. Electronically Signed: Cari Chilel MD at 14:04 EDT , ADDENDUM: 10/15/22 1411 IMPRESSION: Enlarged appearance of the pituitary gland with osseous remodeling, suspicious for pituitary macroadenoma or other mass. Recommend MRI pituitary mass protocol. No acute intracranial hemorrhage identified. Small chronic appearing left basal ganglia lacunar infarct. Chronic involutional and white matter changes. N.B. : The above Results were Read Back by Cari Chilel MD to Ramila Bajwa MD, and understanding confirmed on 10/15/2022 14:05:05 (ET). Electronically Signed: Cari Chilel MD at 14:04 EDT , Head/Neck CTA 10/15/22 14:24 IMPRESSION: Moderate stenoses in the proximal bilateral vertebral and internal carotid arteries in the neck. No evidence for large vessel occlusion the [place]. Small pituitary mass; recommend MRI. Electronically Signed: Cari Chilel MD at 15:29 EDT , Chest X-Ray 10/15/22 14:25 IMPRESSION: Mild bibasilar atelectasis or scarring. Electronically Signed: Cari Chilel MD at 14:57 EDT , Brain MRI 10/15/22 18:15 IMPRESSION: Moderate periventricular white matter ischemic changes with small focal acute deep white matter infarct in left parietal lobe. Incidental finding of nonspecific enlargement of the pituitary without focal nodule Bilateral maxillary ethmoid and sphenoid sinus disease likely chronic Electronically Signed: Christian Nicole MD at 20:01 EDT , ADDENDUM: 10/15/222052 IMPRESSION: Moderate periventricular white matter ischemic changes with small focal acute deep white matter infarct in left parietal lobe. Incidental finding of nonspecific enlargement of the pituitary without focal nodule Bilateral maxillary ethmoid and sphenoid sinus disease likely chronic N.B. : The above Results were Read Back by Christian Nicole MD to LEEANN RODGERS MD, and understanding confirmed on 10/15/2022 20:46:38 (ET). Electronically Signed: Christian Nicole MD at 20:01 EDT , Physical Exam Const alert, oriented x3, no apparent distress, healthy appearing and well nourished Constitutional Narrative: Overweight, upper middle-aged, white male, sitting up in bed, and son at bedside, appears somewhat miserable at this time however does not appear toxic General Appearance: cooperative HEENT normocephalic, head/scalp atraumatic, hearing grossly normal bilaterally and moist oral mucous membranes Eyes PERRL, EOMs intact bilaterally and conjunctivae normal Eyes Narrative: No scleral icterus, horizontal nice to note Neck no lymphadenopathy and supple Neck Narrative: Trachea midline, no thyroid enlargement Resp normal respiratory effort, no retractions, no use of accessory muscles and clear to auscultation bilaterally Auscultation: Negative for rales, rhonchi or wheezes Cardio regular rate, regular rhythm, S1 normal heart sound, S2 normal heart sound, no rub and no clicks; Negative for no murmurs or no gallops Cardio Narrative: S4 gallop, 3 out of 6 systolic murmur loudest at left lower sternal border GI normal to inspection, nondistended, normoactive bowel sounds, soft to palpation and non-tender Extremity no clubbing, cyanosis or edema Extremity Narrative: Pedal pulses are 2+ Skin no rashes or lesions noted, no wounds, skin turgor normal, no jaundice, no petechiae and no mottling Neuro oriented x3, CN's II-XII intact bilaterally, moves all extremities and no focal motor deficits Neuro Narrative: Patient with horizontal nystagmus bilateral eyes that does appear to be fatigable and worsens with turning his head to his right Sensorium / Orientation: awake, alert, oriented to person, oriented to place and oriented to time Speech: speech normal Psych Psych Narrative: Affect is somewhat flat today however patient is not feeling well at the time, interacts appropriately Assessment & Plan Assessment/Plan (1) Vertigo: (2) Hypertensive emergency: (3) Elevated serum creatinine: (4) Hyperglycemia: (5) Pituitary mass: (6) Acute stroke due to ischemia: (7) Hyperlipidemia: (8) Carotid artery stenosis: (9) Vertebral artery stenosis: PLAN: Plan Left parietal deep white matter stroke -MRI demonstrated moderate periventricular white matter ischemic changes as well as a small focal acute deep white matter infarct in the left parietal lobe and pituitary enlargement without nodularity -Findings on MRI are not consistent with a stroke that would cause vertigo -We will allow for permissive hypertension for the next 24 hours with goal systolic pressure at 180 today and then okay to drop pressure tomorrow to goal of 130/80 -Based on his EKG I suspect he has untreated hypertension at baseline--> met LVH criteria -Echocardiogram remains pending -Continue aspirin 81 mg daily -Plavix loaded last evening and currently on 75 mg daily -Continue atorvastatin 80 mg daily -We will start low-dose lisinopril 10 mg to start to bring his blood pressure down without using as needed's -PT/OT consultation are pending Vertigo -Vertigo is now positional and associate with horizontal nystagmus -Posterior stroke ruled out however deep white matter left parietal stroke noted -Suspect acute vestibular syndrome -Suspect BPPV or labyrinthitis -We will start low-dose IV steroid 20 mg daily -Continue as needed meclizine Pituitary mass -Pituitary enlargement but no mass noted on MRI -Neurology recommended outpatient neurological follow-up with outpatient labs -TSH is normal here -Cortisol slightly elevated however to be expected with acute hospitalization and stroke -We will need further biochemical testing as an outpatient Bilateral carotid artery and vertebral artery stenosis -Moderate on CTA suggesting 50% of all 4 vessels -Continue blood pressure management with more aggressive parameters in the next 24 hours -Continue atorvastatin -Outpatient follow-up Hypertensive emergency -Blood pressure was markedly elevated and with neurological changes I believe we can justify emergency at this time -Start lisinopril 10 mg daily--> anticipate that this will need to be uptitrated -Continue as needed labetalol and as needed hydralazine for systolic pressure greater than 180 -Goal blood pressure today is approximately 180 systolic and will start to drop further tomorrow -EKG does show some left axis deviation and LVH I do suspect he has hypertension at baseline that is undiagnosed -Echocardiogram is pending Elevated serum creatinine -Likely related to nausea and vomiting -Improved today from 1.38-1.16 next-repeat lab in a.m. Hyperglycemia -Patient is not diabetic -Hemoglobin A1c was 5.6 Obesity -BMI 31.8 -Complicates treatment, prognosis, outcomes -Recommended weight loss DVT prophylaxis -Lovenox subcu daily CODE STATUS -Full code Charges/Coding Visit Charges Inpatient E&M: 52364 Subs Hosp L3
--- NOTE | 2022-10-16 13:54 | CPS ---
SMI HELD AT THIS TIME ALONG WITH PEP. PT RESTING AND HAS NOT BEEN FEELING WELL DUE TO HIS VERTIGO SYMPTOMS.
[2022-10-16] MEDS: Atorvastatin Calcium 80 MG Tablet PO (20:15)
[2022-10-17] VITALS (12 sets, daily range): BP systolic 147–203; BP diastolic 71–107; PULSE 60–75; RESP 15–18; TEMP 36.3–37.2; O2SAT 94–98; BMI 30.4
[2022-10-17 06:27] LABS: Anion Gap 4 (5-15); BUN 22 mg/dL (7-18); BUN/Creat Ratio 17.7 RATIO (10-20); Calcium,Total 8.7 mg/dL (8.5-10.1); Chloride 110 mmol/L (98-107); Creatinine, Serum 1.24 mg/dL (0.70-1.30); EST Glomerular Filtration Rate 61 mL/min (>60); Est Glom Filt Rate - Afr Amer 74 mL/min (>60); Glucose 91 mg/dL (74-106); Potassium 3.5 mmol/L (3.5-5.1); Sodium Level 141 mmol/L (136-145)
[2022-10-17] MEDS: Carvedilol 6.25 MG Tablet PO ×2 (08:06→17:38)
[2022-10-17] MEDS: Lisinopril 20 MG Tablet PO ×2 (08:06→10:36)
[2022-10-17] MEDS: Aspirin 81 MG TAB.CHEW PO (08:07)
[2022-10-17] MEDS: Clopidogrel Bisulfate 75 MG Tablet PO (08:07)
[2022-10-17] MEDS: Enoxaparin 40 MG/0.4 ML Syringe SC (10:02)
[2022-10-17] MEDS: 0.9% Saline Lock 10 ML Syringe IV (10:03)
--- NOTE | 2022-10-17 11:24 | CPS ---
PT SLEEPING AT THIS TIME SMI AND PEP HELD
[2022-10-17] MEDS: amLODIPine 10 MG Tablet PO (15:37)
--- NOTE | 2022-10-17 17:20 | RDU_ITS ---
Reason For Study: HTN Right Renal Artery Left Renal Artery Right renal artery ostium Left renal artery ostium 108.8/21.2 101.5/19.4 RSV/EDV. PSV/EDV. Right renal artery proximal Left renal artery proximal PSV/EDV 114.3/21.2 PSV/EDV. 123.4/26.7 . Right renal artery mid 93.6/26.7 Left renal artery mid 110.6/26.7 PSV/EDV. PSV/EDV . Right renal artery distal 102/19.8 Left renal artery distal 108.1/35.3 PSV/EDV. PSV/EDV. Right Renal Parenchyma Left Renal Parenchyma Upper Pole Medula 25.1/7 PSV/EDV. Left upper pole medulla 28.3/7 Right upper pole medulla EDR 0.3 . PSV/EDV . Right upper pole medulla R.I. Left upper pole medulla EDR 0.2 . 0.72 . Left upper pole medulla R.I. 0.75 . Upper Aaron Cortx 19.8/4.1 PSV/EDV. UP Cortex 13.2/4.7 PSV/EDV. Right upper pole cortex EDR 0.2 . Left upper pole cortex EDR 0.4 . Right upper pole cortex R.I. 0.79 . Left upper pole cortex R.I. 0.65 . Right lower Pole medulla 25.8/6.3 Left lower Pole medulla 19.3/7 PSV/EDV . PSV/EDV . Right lower pole medulla EDR 0.2 . Left lower pole medulla EDR 0.4 . Right lower pole medulla R.I. Left lower pole medulla R.I. 0.64 . 0.76 . Lower Pole Cortx 14.1/4.7 PSV/EDV. Lower Pole Cortex 16.9/4.8 PSV/EDV. Left lower pole cortex EDR 0.3 . Right lower pole cortex EDR 0.3 . Left lower pole cortex R.I. 0.67 . Right lower pole cortex R.I. 0.71 . Left Renal Hilar Right Renal Hilar LT Hilar avg 43.6/11.6 PSV/EDV . Right Hilar avg 57.3/15.7 PSV/EDV. Left hilar acceleration time 50 Right hilar acceleration time 40 m/sec. m/sec. Left Renal Dimensions Right Renal Dimensions Left kidney size 10.73 cm . Right kidney size 10.54 cm . Left cortical dimension 1.91 cm . Right cortical dimension 1.82 cm . Aorta Proximal abdominal aorta 1.79 x 1.79 cm . Proximal abdominal aorta peak systolic velocity is 112.5 cm/sec . Distal abdominal aorta 1.62 x 1.59 cm . Distal abdominal aorta peak systolic velocity is 123.5 cm/sec . VL/Renal Artery Duplex Ultrasound Interpretation Summary Less than 60% stenosis bilateral renal arteries. Right renal length maintained at 10.54 cm Left renal length maintained at 10.73 cm Maximal aortic dimensions proximally at 1.79 x 1.79 cm in diameter Slightly elevated proximal abdominal aortic flow velocity of 112.5 cm/s which i nvalidates renal artery to aortic ratios but I do not believe that that affects the current inte rpretation. Ordering Physician: Shaila Marx Performed By: Tootie Cormier RVT
--- NOTE | 2022-10-17 17:42 | PCM.PN.HOSP ---
Reason for Visit Reason for Visit: Dizziness Subjective Subjective Patient is feeling better overall today. Still some unsteady gait and states his vision is just a little bit fuzzy. No nystagmus or dizziness today. Blood pressure was improved this morning however through the day despite up titration of his antihypertensives his blood pressure remained elevated which was prohibitive to discharge. Cortisol was elevated on presentation at 36. Began questioning whether or not he has central induced Erik's disease with his pituitary enlargement. I will check an ACTH tonight as well as a renal duplex to be done in the morning for further work-up with regards to his blood pressure. Continue current blood pressure medications along with as needed's Objective Data Objective Data Vital Signs: Vital Signs Temp Pulse Resp BP Pulse Ox O2 Del Method 97.9 F 69 16 205/104 H 96 Room Air 10/17/22 16:00 10/17/22 17:38 10/17/22 16:00 10/17/22 17:38 10/17/22 16:00 10/17/22 16:00 Oxygen Delivery Method Room Air Weight: 90.8 kg Body Mass Index (BMI) 30.4 Intake & Output: Intake and Output for Last 24 Hours 10/15/22 10/16/22 10/17/22 23:59 23:59 23:59 Intake Total 450 / 450 1820 / 1820 1200 / 1200 Output Total 0 / 0 0 / 0 Balance 450 / 450 1820 / 1820 1200 / 1200 Lab / Micro Data Result Diagrams: 10/16/22 06:39 10/17/22 04:54 Labs: Laboratory Results - last 24 hr 10/17/22 04:54: Sodium 141, Potassium 3.5, Chloride 110 H, Carbon Dioxide 27.0, Anion Gap 4 L, BUN 22 H, Creatinine 1.24, Estim Creat Clear Calc 54.40, Est GFR (MDRD) Af Amer 74, Est GFR (MDRD) Non-Af 61, BUN/Creatinine Ratio 17.7, Glucose 91, Calcium 8.7 Physical Exam Const alert, oriented x3, no apparent distress, healthy appearing and well nourished Constitutional Narrative: Overweight, upper middle-aged, white male, sitting up in a chair at the bedside, at bedside, appears as if he is feeling much better today, comfortable and nontoxic General Appearance: cooperative HEENT normocephalic, head/scalp atraumatic, hearing grossly normal bilaterally and moist oral mucous membranes HEENT Narrative: Mallampati 2 thrush Eyes PERRL and EOMs intact bilaterally Eyes Narrative: No horizontal nystagmus Resp normal respiratory effort, no retractions, no use of accessory muscles and clear to auscultation bilaterally Auscultation: Negative for rales, rhonchi or wheezes Cardio regular rate, regular rhythm, S1 normal heart sound, S2 normal heart sound, no rub, no gallops and no clicks; Negative for no murmurs Cardio Narrative: 3 out of 6 systolic murmur loudest at left lower sternal border GI normal to inspection, nondistended, normoactive bowel sounds, soft to palpation and non-tender Extremity no clubbing, cyanosis or edema Extremity Narrative: Pedal pulses are 2+ Neuro oriented x3, CN's II-XII intact bilaterally, moves all extremities and no focal motor deficits Neuro Narrative: Nystagmus has been resolved Speech: speech normal Motor Exam: strength 5/5 throughout Psych affect normal Psych Narrative: Very pleasant and appropriately interactive Assessment & Plan Assessment/Plan (1) Vertigo: (2) Hypertensive emergency: (3) Elevated serum creatinine: (4) Hyperglycemia: (5) Pituitary mass: (6) Acute stroke due to ischemia: (7) Hyperlipidemia: (8) Carotid artery stenosis: (9) Vertebral artery stenosis: PLAN: Plan Left parietal deep white matter stroke -MRI demonstrated moderate periventricular white matter ischemic changes as well as a small focal acute deep white matter infarct in the left parietal lobe and pituitary enlargement without nodularity -Findings on MRI are not consistent with a stroke that would cause vertigo -Goal for blood pressure today is now 130/80 or less but we are having difficulty obtaining this -Based on his EKG I suspect he has untreated hypertension at baseline--> met LVH criteria -Echocardiogram showed a normal EF with no PFO however he did have concentric LVH, mild aortic stenosis and mild aortic root dilation -Continue aspirin 81 mg daily -Continue Plavix 75 mg daily -Continue atorvastatin 80 mg daily -PT/OT following Vertigo -Vertigo is now positional and associate with horizontal nystagmus -Posterior stroke ruled out however deep white matter left parietal stroke noted -Suspect acute vestibular syndrome -Suspect BPPV or labyrinthitis -Ago is improved today -Stop steroids with persistently elevated blood pressure -Continue as needed meclizine Pituitary mass -Pituitary enlargement but no mass noted on MRI -Neurology recommended outpatient neurological follow-up with outpatient labs however with persistent elevated blood pressure and elevated cortisol on presentation we will check ACTH -TSH is normal here -Cortisol slightly elevated however to be expected with acute hospitalization and stroke -We will need further biochemical testing as an outpatient Bilateral carotid artery and vertebral artery stenosis -Moderate on CTA suggesting 50% of all 4 vessels -Continue blood pressure management with more aggressive parameters in the next 24 hours -Continue atorvastatin -Outpatient follow-up Hypertensive emergency -Blood pressure was markedly elevated and with neurological changes I believe we can justify emergency at this time -Continue lisinopril 40 mg daily, continue amlodipine 10 mg daily, continue Coreg 6.25 mg daily which were all started today except for the lisinopril which was increased from 10 mg to 40 mg today -Continue as needed hydralazine 10 mg every 6 hours for systolic pressure greater than 150 -Check renal duplex since blood pressures are persistently elevated -ACTH is pending -Cortisol was elevated on presentation/TSH normal -EKG does show some left axis deviation and LVH I do suspect he has hypertension at baseline that is undiagnosed -Echocardiogram is consistent with chronically elevated blood pressure -If blood pressure remains elevated despite interventions may need nephrology assistance Elevated serum creatinine -Resolved Hyperglycemia -Patient is not diabetic -Hemoglobin A1c was 5.6 Obesity -BMI 31.8 -Complicates treatment, prognosis, outcomes -Recommended weight loss DVT prophylaxis -Lovenox subcu daily CODE STATUS -Full code Charges/Coding Visit Charges Inpatient E&M: 01491 Subs Hosp L3
[2022-10-17] MEDS: hydrALAZINE 20 MG/ML Vial 10 MG IV (18:03)
--- NOTE | 2022-10-17 18:40 | PCM.HOSP.N ---
Hospitalist Note Patient had significant response to IV hydralazine with a drop in his blood pressure to 147/71 from 203/104. The elevated pressures were manual pressures checked by myself. I will discontinue his amlodipine and transition to hydralazine as he seems to respond better to this medication. We can trend his blood pressures through the night and if he is consistently at 150 or lower we should be able to discharge him home. We will continue lisinopril and Coreg at this time
[2022-10-17] MEDS: hydrALAZINE 25 MG Tablet PO (21:16)
[2022-10-17] MEDS: Atorvastatin Calcium 80 MG Tablet PO (21:16)
[2022-10-18] VITALS (10 sets, daily range): BP systolic 138–163; BP diastolic 75–93; PULSE 63–96; RESP 15–18; TEMP 36.5–36.8; O2SAT 92–96
[2022-10-18] MEDS: hydrALAZINE 25 MG Tablet PO (05:52)
[2022-10-18] MEDS: Clopidogrel Bisulfate 75 MG Tablet PO (08:36)
[2022-10-18] MEDS: Enoxaparin 40 MG/0.4 ML Syringe SC (08:36)
[2022-10-18] MEDS: Lisinopril 20 MG Tablet PO (08:36)
[2022-10-18] MEDS: Aspirin 81 MG TAB.CHEW PO (08:37)
[2022-10-18] MEDS: amLODIPine 10 MG Tablet PO (08:37)
[2022-10-18] MEDS: Carvedilol 6.25 MG Tablet PO ×2 (08:37→15:35)
--- NOTE | 2022-10-18 09:47 | PCM.PN.HOSP ---
Reason for Visit Reason for Visit: Diagnoses Other disorders of pituitary gland (10/15/22) Hyperlipidemia, unspecified (10/15/22) Hypertensive emergency (10/15/22) Cerebral infarction, unspecified (10/15/22) Occlusion and stenosis of unspecified vertebral artery (10/15/22) Occlusion and stenosis of unspecified carotid artery (10/15/22) Dizziness and giddiness (10/15/22) Hyperglycemia, unspecified (10/15/22) Other specified abnormal findings of blood chemistry (10/15/22) Subjective Subjective Still with dizziness and unsteadiness when he walks. Overall, his dizziness is much improved. Objective Data Objective Data Vital Signs: Vital Signs Temp Pulse Resp BP Pulse Ox O2 Del Method 36.6 C 63 18 163/93 H 92 Room Air 10/18/22 08:00 10/18/22 08:00 10/18/22 08:00 10/18/22 05:52 10/18/22 07:34 10/18/22 07:34 Oxygen Delivery Method Room Air Weight: 90.8 kg Body Mass Index (BMI) 30.4 Intake & Output: Intake and Output for Last 24 Hours 10/16/22 10/17/22 10/18/22 23:59 23:59 23:59 Intake Total 1820 / 1820 1900 / 1900 Output Total 0 / 0 0 / 0 0 / 0 Balance 1820 / 1820 1900 / 1900 0 / 0 Lab / Micro Data Result Diagrams: 10/16/22 06:39 10/17/22 04:54 Physical Exam Const alert and no apparent distress HEENT head/scalp atraumatic and moist oral mucous membranes Eyes Eyes Narrative: left lateral nystagmus. Resp normal respiratory effort, no use of accessory muscles and clear to auscultation bilaterally Cardio regular rate, regular rhythm, S1 normal heart sound and S2 normal heart sound GI normal to inspection, nondistended, normoactive bowel sounds, soft to palpation, non-tender and non-distended Assessment & Plan Assessment/Plan (1) Vertigo: PLAN: Improved overall but still ongoing. Vertigo is now positional and associate with horizontal nystagmus Posterior stroke ruled out however deep white matter left parietal stroke noted Suspect due to BPPV Continue as needed meclizine (2) Hypertensive emergency: PLAN: Improved On hydralazine 25 TID, amlodipine 10, carvedilol 6.25 BID, liinsopril 20 Increase hydralazine to 50 TID Patient states that he will check his blood pressure at home, periodically, to be in the 140s to 150s. Have encouraged him to check it twice daily and keep a record of that, particularly outliers, and the follow-up with his primary care physician to see about whether modifications may be necessary. Renal artery duplex shows less than 60% stenosis of bilateral renal arteries. (3) Acute stroke due to ischemia: PLAN: Left parietal deep white matter stroke MRI demonstrated moderate periventricular white matter ischemic changes as well as a small focal acute deep white matter infarct in the left parietal lobe and pituitary enlargement without nodularity. Findings on MRI are not consistent with a stroke that would cause vertigo Echocardiogram showed a normal EF with no PFO however he did have concentric LVH, mild aortic stenosis and mild aortic root dilation Continue aspirin 81 mg daily, Plavix 75 mg daily, atorvastatin 80 mg daily Follow-up with neurology as outpatient. (4) Carotid artery stenosis: PLAN: Non-obstructive: 30% RCCA, 50% DANISHA, <30% LCCA, LICA 50% proximally and 30% distally, L vert 50%, R vert 50% Follow up vascular surgery as outpt not amenable to intervention at this time (5) Vertebral artery stenosis: PLAN: Non-obstructive: 30% RCCA, 50% DANISHA, <30% LCCA, LICA 50% proximally and 30% distally, L vert 50%, R vert 50% Follow up vascular surgery as outpt. Patient to follow-up with his primary care provider in regards to surgeons that he could follow-up as outpatient. Told he and his that there is is no urgency at this time. not amenable to intervention at this time (6) Pituitary gland enlarged: PLAN: Pituitary enlargement but no mass noted on MRI Neurology recommended outpatient neurological follow-up with outpatient labs however with persistent elevated blood pressure and elevated cortisol on presentation we will check ACTH TSH is normal here Cortisol slightly elevated however to be expected with acute hospitalization and stroke ACTH pending PLAN: Plan Obesity -BMI 31.8 -Complicates treatment, prognosis, outcomes -Recommended weight loss DVT prophylaxis -Lovenox subcu daily CODE STATUS -Full code
--- NOTE | 2022-10-18 11:59 | CASEMGMT ---
Social Work SW completed PHQ-9, pt scored a 0, has no indication of depression at this time. NORM Wolfe
--- NOTE | 2022-10-18 12:00 | CASEMGMT ---
Social Work Pt completed PHQ-9 w/SW, pt scored a 0. Pt and asked about getting medical records, SW gave them a release of information form along with the number for HIM and their fax number once they know where they would like records sent(they explain that they are looking at changing PCPs so not sure where they want the records sent yet). They also asked about the pt's status, SW explained what observation status means and how it's billed to insurance. No further social service needs at present. NORM Wolfe
--- NOTE | 2022-10-18 13:20 | DCINST_ITS ---
Discharge Instructions Diet Discharge Diet: Low fat / Low cholesterol Activity Discharge Activity: Use Walker Follow Up Care Test Results: Test results from this visit will be discussed in further detail at your follow- up appointment, if applicable. Discharge Plan Admission Admit Date/Time: 10/15/22 16:12 Primary Reason for Your Visit: Stroke. Vertigo. Attending Provider: Zana Tena Primary Care Provider: Care Physician,No Primary Consulting Providers: Shaila Marx Instructions Additional Instructions / Restrictions: You likely have benign paroxysmal positional vertigo, aka BPPV. 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 Today, when I examine you, he still had danny e left lateral nystagmus. Recommend taking meclizine as needed for symptoms and you may need to see physical therapy as outpatient for vestibular rehab. Follow-up with your primary care provider to see about getting that arranged. You did have a stroke, though this was not the cause of your vertigo. You will need to continue with aspirin, clopidogrel and atorvastatin. Please follow-up with neurology in the next 1 to 2 months for outpatient follow-up. Also, you had an incidental finding of pituitary gland enlargement. No definitive mass was clearly identified on our MRI imaging but I would still recommend following up with neurology in regards to having this further evaluated and whether or not you may need a neurosurgical referral. You have peripheral vascular disease with carotid stenosis. You also have a renal artery stenosis but stenosis is less than 60%. Does not meet criteria for any intervention at this time. Please follow-up with vascular surgery as outpatient. Contact your primary care provider for specialist that you can be referred to. Please follow-up with your primary care provider in the next 1 to 2 weeks. Discharge Orders/Prescriptions Prescriptions: New amlodipine 10 mg Tablet 10 mg PO DAILY Qty: 30 0RF atorvastatin 80 mg Tablet 80 mg PO QHS Qty: 30 0RF aspirin 81 mg Tablet,Chewable 81 mg PO BREAKFAST Qty: 0 0RF carvedilol 6.25 mg Tablet 6.25 mg PO BIDCM Qty: 60 0RF clopidogrel 75 mg Tablet 75 mg PO DAILY Qty: 30 0RF hydralazine 50 mg Tablet 50 mg PO TID Qty: 90 0RF lisinopril 20 mg Tablet 20 mg PO DAILY Qty: 30 0RF meclizine 12.5 mg Tablet 12.5 mg PO 4X/DAY PRN PRN (Reason: Vertigo) Qty: 20 0RF Referrals / Follow Up: Care Physician,No Primary [Primary Care Provider] - Disposition Disposition (needs filled in before D/C Order can be placed): Home, Self Care
--- NOTE | 2022-10-18 13:31 | DS.PCM_ITS ---
Providers Date of Admission: 10/15/22 Primary Care Physician: No Primary Care Phys Reason For Visit: VERTIGO/HTN EMERGENCY Diagnosis Discharge Diagnosis (1) Vertigo: Status: Acute Code(s): R42 - Dizziness and giddiness Plan: Improved overall but still ongoing. Vertigo is now positional and associate with horizontal nystagmus Posterior stroke ruled out however deep white matter left parietal stroke noted Suspect due to BPPV Continue as needed meclizine (2) Hypertensive emergency: Status: Acute Code(s): I16.1 - Hypertensive emergency Plan: Improved On hydralazine 25 TID, amlodipine 10, carvedilol 6.25 BID, liinsopril 20 Increase hydralazine to 50 TID Patient states that he will check his blood pressure at home, periodically, to be in the 140s to 150s. Have encouraged him to check it twice daily and keep a record of that, particularly outliers, and the follow-up with his primary care physician to see about whether modifications may be necessary. Renal artery duplex shows less than 60% stenosis of bilateral renal arteries. (3) Acute stroke due to ischemia: Status: Acute Code(s): I63.9 - Cerebral infarction, unspecified Plan: Left parietal deep white matter stroke MRI demonstrated moderate periventricular white matter ischemic changes as well as a small focal acute deep white matter infarct in the left parietal lobe and pituitary enlargement without nodularity. Findings on MRI are not consistent with a stroke that would cause vertigo Echocardiogram showed a normal EF with no PFO however he did have concentric LVH, mild aortic stenosis and mild aortic root dilation Continue aspirin 81 mg daily, Plavix 75 mg daily, atorvastatin 80 mg daily Follow-up with neurology as outpatient. (4) Carotid artery stenosis: Status: Acute Code(s): I65.29 - Occlusion and stenosis of unspecified carotid artery Plan: Non-obstructive: 30% RCCA, 50% DANISHA, <30% LCCA, LICA 50% proximally and 30% distally, L vert 50%, R vert 50% Follow up vascular surgery as outpt not amenable to intervention at this time (5) Vertebral artery stenosis: Status: Acute Code(s): I65.09 - Occlusion and stenosis of unspecified vertebral artery Plan: Non-obstructive: 30% RCCA, 50% DANISHA, <30% LCCA, LICA 50% proximally and 30% distally, L vert 50%, R vert 50% Follow up vascular surgery as outpt. Patient to follow-up with his primary care provider in regards to surgeons that he could follow-up as outpatient. Told he and his that there is is no urgency at this time. not amenable to intervention at this time (6) Pituitary gland enlarged: Status: Acute Code(s): E23.6 - Other disorders of pituitary gland Plan: Pituitary enlargement but no mass noted on MRI Neurology recommended outpatient neurological follow-up with outpatient labs however with persistent elevated blood pressure and elevated cortisol on presentation we will check ACTH TSH is normal here Cortisol slightly elevated however to be expected with acute hospitalization and stroke ACTH pending Plan Obesity -BMI 31.8 -Complicates treatment, prognosis, outcomes -Recommended weight loss DVT prophylaxis -Lovenox subcu daily CODE STATUS -Full code Medications at Discharge Home Medications amlodipine 10 mg tablet 10 mg PO DAILY #30 tabs 10/18/22 aspirin 81 mg chewable tablet 81 mg PO BREAKFAST #0 tabs 10/18/22 atorvastatin 80 mg tablet 80 mg PO QHS #30 tabs 10/18/22 carvedilol 6.25 mg tablet 6.25 mg PO BIDCM #60 tabs 10/18/22 clopidogrel 75 mg tablet 75 mg PO DAILY #30 tabs 10/18/22 hydralazine 50 mg tablet 50 mg PO TID #90 tabs 10/18/22 lisinopril 20 mg tablet 20 mg PO DAILY #30 tabs 10/18/22 meclizine 12.5 mg tablet 12.5 mg PO 4X/DAY PRN PRN Vertigo #20 tabs 10/18/22 Hospital Course Operations None Procedures 2-D Echocardiogram Summary of Care Provided Minutes Spent on Discharge: 35 Hospital Course: Patient presents with acute onset of vertigo while watching his grandsons baseball game. Patient underwent stroke work-up and had an MRI of his brain that showed moderate periventricular white matter ischemic changes with small focal acute deep white matter infarct in the left parietal lobe. Also an incide ntal finding of nonspecific enlargement of the pituitary gland without focal nodule. Patient was seen by neurology who recommended to antiplatelet therapy as well as high intensity statin with atorvastatin. Recommended further follow- up as outpatient for with the pituitary enlargement. Patient also did have CTA that showed bilateral carotid stenosis and vertebral artery stenosis. Patient also had hypertensive emergency and did undergo renal arteries duplex that showed less than 60% stenosis of bilateral renal arteries. Patient's blood pressure is better controlled. Patient does note that he previously was checking his blood pressure at home periodically and was in the 140s to 150s. It is encouraged to the patient, and from his , that he should check his blood pressure at least a couple times daily until things settle down. Patient will need to follow-up with his primary care provider in regards to further blood pressure management but also to have referrals to neurosurgery regards to the pituitary enlargement, neurology for the stroke and vascular surgery for the carotid stenosis and renal artery stenosis. Hopefully with medications I will help dedra her any further progression of his peripheral arterial disease. Weight / BMI Weight Weight: 90.8 kg Body Mass Index (BMI) 30.4 ABG / Lab / Microbiology Data Result Diagrams: 10/16/22 06:39 10/17/22 04:54 Radiography Diagnostic Testing: Radiology Impression Renal Artery Duplex 10/17/22 17:20 Interpretation Summary Less than 60% stenosis bilateral renal arteries. Right renal length maintained at 10.54 cm Left renal length maintained at 10.73 cm Maximal aortic dimensions proximally at 1.79 x 1.79 cm in diameter Slightly elevated proximal abdominal aortic flow velocity of 112.5 cm/s which invalidates renal artery to aortic ratios but I do not believe that that affects the current inter pretation. Ordering Physician: Shaila Marx Performed By: Tootie Cormier RVT D/C Instructions Discharge Diet: Low fat / Low cholesterol Meaningful Use Info Meaningful Use Diagnoses (Choose all that apply): Ischemic CVA CVA Therapy Assessed for PT,OT and/or ST?: Yes Ischemic Stroke Antithrombotic order at d/c?: Yes Dx of Atrial fib/flutter?: No Anticoagulant at discharge?: No Reason anticoagulant not ordered: Treatment not Indicated Statins at discharge?: Yes Primary Dx Acute Ischemic CVA?: Yes IV thrombolytic ordered during stay?: No Reason IV thrombolytic not ordered: Medical Contraindication Discharge Plan Admission Admit Date/Time: 10/15/22 16:12 Primary Reason for Your Visit: Stroke. Vertigo. Attending Provider: Zana Tena Primary Care Provider: Care Physician,No Primary Consulting Providers: Shaila Marx Instructions Additional Instructions / Restrictions: You likely have benign paroxysmal positional vertigo, aka BPPV. 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 Today, when I examine you, he still had some left lateral nystagmus. Recommend taking meclizine as needed for symptoms and you may need to see physical therapy as outpatient for vestibular rehab. Follow-up with your primary care provider to see about getting that arranged. You did have a stroke, though this was not the cause of your vertigo. You will need to continue with aspirin, clopidogrel and atorvastatin. Please follow-up with neurology in the next 1 to 2 months for outpatient follow-up. Also, you had an incidental finding of pituitary gland enlargement. No definitive mass was clearly identified on our MRI imaging but I would still recommend following up with neurology in regards to having this further evaluated and whether or not you may need a neurosurgical referral. You have peripheral vascular disease with carotid stenosis. You also have a renal artery stenosis but stenosis is less than 60%. Does not meet criteria for any intervention at this time. Please follow-up with vascular surgery as outpatient. Contact your primary care provider for specialist that you can be referred to. Please follow-up with your primary care provider in the next 1 to 2 weeks. Discharge Orders/Prescriptions Prescriptions: New amlodipine 10 mg Tablet 10 mg PO DAILY Qty: 30 0RF atorvastatin 80 mg Tablet 80 mg PO QHS Qty: 30 0RF aspirin 81 mg Tablet,Chewable 81 mg PO BREAKFAST Qty: 0 0RF carvedilol 6.25 mg Tablet 6.25 mg PO BIDCM Qty: 60 0RF clopidogrel 75 mg Tablet 75 mg PO DAILY Qty: 30 0RF hydralazine 50 mg Tablet 50 mg PO TID Qty: 90 0RF lisinopril 20 mg Tablet 20 mg PO DAILY Qty: 30 0RF meclizine 12.5 mg Tablet 12.5 mg PO 4X/DAY PRN PRN (Reason: Vertigo) Qty: 20 0RF Referrals / Follow Up: Care Physician,No Primary [Primary Care Provider] - Disposition Disposition (needs filled in before D/C Order can be placed): Home, Self Care Charges/Coding Visit Charges Inpatient E&M: 69799 Disch Hosp >30min
--- NOTE | 2022-10-18 13:55 | CASEMGMT ---
MAICOL LAGUNAS in to discuss discharge needs with patient. Patient states he has access to walk while here in [place] and has walker home in [place]. Patient and denied further needs. MAICOL LAGUNAS encouraged patient to follow-up with PCP upon returning home. Patient and had no further questions or concerns.
--- NOTE | 2022-10-18 14:48 | PHA.DC.MC ---
Pharmacy Service has performed discharge medication reconciliation and counseling for this patient. 1. AMLODIPINE 10MG PO DAILY 2. ASPIRIN 81MG PO BREAKFAST 3. ATORVASTATIN 80MG PO QHS 4. CARVEDILOL 6.25MG PO BIDCM 5. CLOPIDOGREL 75MG PO DAILY 6. HYDRALAZINE 50MG PO TID 7. LISINOPRIL 20MG PO DAILY 8. MECLIZINE 12.5MG PO 4X/DAY PRN VERTIGO The patient's discharge medication list was reviewed for discrepancies and discrepancies were resolved. Home Medications amlodipine 10 mg tablet 10 mg PO DAILY #30 tabs 10/18/22 aspirin 81 mg chewable tablet 81 mg PO BREAKFAST #0 tabs 10/18/22 atorvastatin 80 mg tablet 80 mg PO QHS #30 tabs 10/18/22 carvedilol 6.25 mg tablet 6.25 mg PO BIDCM #60 tabs 10/18/22 clopidogrel 75 mg tablet 75 mg PO DAILY #30 tabs 10/18/22 hydralazine 50 mg tablet 50 mg PO TID #90 tabs 10/18/22 lisinopril 20 mg tablet 20 mg PO DAILY #30 tabs 10/18/22 meclizine 12.5 mg tablet 12.5 mg PO 4X/DAY PRN PRN Vertigo #20 tabs 10/18/22 The patient was counseled on the following discharge medications and changes in medications for homegoing were reviewed. The Reason for Use, instructions for use, and potential side effects were reviewed for all new medications. The patient's questions regarding all of their medications were answered. The patient was able to verbally demonstrate an understanding of their discharge medications. Patient counseled by pharmacy operations specialistEric.
[2022-10-18] MEDS: hydrALAZINE 50 MG Tablet PO (15:36)
--- NOTE | 2022-10-18 17:37 | NURSING ---
patient discharged home per orders.
[2022-10-19 13:08] LABS: Adrenocorticotropic Hormone 8.2 pg/mL (7.2-63.3)
== END 2022-10-18 17:34 | disposition home or self-care (01) ==
LOC: ED 15:54 → PCU 16:31
PROVIDERS: Admitting Provider Internal Medicine; Emergency Provider Emergency Medicine
DX: I63.9 Cerebral infarction, unspecified (principal); I70.1 Atherosclerosis of renal artery; E23.6 Other disorders of pituitary gland; I16.1 Hypertensive emergency; R26.81 Unsteadiness on feet; R93.0 Abnormal findings on diagnostic imaging of skull and head, not elsewhere classified; R73.9 Hyperglycemia, unspecified; R11.2 Nausea with vomiting, unspecified; Z86.73 Personal history of transient ischemic attack (TIA), and cerebral infarction without residual deficits; R42 Dizziness and giddiness; E66.9 Obesity, unspecified; Z68.31 Body mass index [BMI] 31.0-31.9, adult; I65.23 Occlusion and stenosis of bilateral carotid arteries; I65.03 Occlusion and stenosis of bilateral vertebral arteries
CPT/HCPCS: 36415; 70450; 70496; 70498; 70553; 71045; 80048; 80053; 80061; 82024; 82533; 82962; 83036; 83735; 84100; 84443; 84484; 85025; 85610; 85730; 93005; 93306; 93975; 94668; 94762; 96361; 96372; 96374; 96375; 96376; 97116; 97161; 97165; 97530; 99221; 99285; A9575; J7030; Q9957; Q9967; A4216; G0378; J2405